=== PATIENT | female | born 1955 | race Caucasian/White ===

== ENCOUNTER → 2021-03-19 | Emergency (ER) | payer OTHER ==
[~2021-03-19] VITALS: Ht 149.9 cm; Wt 53.5 kg
[~2021-03-19] MED LIST: ACETAMINOPHEN ES 500 MG TABLET ONE; ACETAMINOPHEN ES 500 MG TABLET PO ONE; IBUP-1957 PO; IBUPROFEN 600 MG TABLET ONE; IBUPROFEN 600 MG TABLET PO ONE
--- NOTE | 2021-03-19 08:03 | NUR ---
TO ER BED 3 FOR MD AGUIRRE
--- NOTE | 2021-03-19 08:09 | NUR ---
SEEN BY DR KATZ,AWAITING ORDERS
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
[2021-03-19 09:01] VITALS: BP 116/74
--- NOTE | 2021-03-19 09:03 | NUR ---
Patient reports decrease in pain after pain medication. Patient discharged to home in stable condition. Written and verbal after care instructions given. Patient verbalizes understanding of instruction.
== END | disposition home or self-care (01) ==
LOC: ER 08:00
DX: S16.1XXA Strain of muscle, fascia and tendon at neck level, initial encounter (principal); S20.212A Contusion of left front wall of thorax, initial encounter; Z88.0 Allergy status to penicillin; V49.49XA Driver injured in collision with other motor vehicles in traffic accident, initial encounter; Y93.89 Activity, other specified; Y92.488 Other paved roadways as the place of occurrence of the external cause; Y99.8 Other external cause status
CPT/HCPCS: 70450-TC; 71250-TC; 72125-TC